=== PATIENT | male | born 2000 | race Caucasian/White ===

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

== ENCOUNTER 2023-11-27 13:52 | Day surgery (SDC) | payer OTHER ==
[~2023-11-27] VITALS: Ht 180.3 cm; Wt 80.7 kg
[~2023-11-27 13:52] MED LIST changes: -CONRAY-43 43% 50ML VIAL (Q9960) As Ordered ONE; +IBUP-1022 PO; +MAGN400C PO; +MULTTAB61 PO; +OMEG10002 PO; -PROHANCE 279.3MG/ML 5ML VIAL (A9576) As Ordered ONE
[2023-11-27] MEDS ORDERED: LR 1,000 ML IV SCH ×2 (14:00→18:45)
[2023-11-27] MEDS ORDERED: LIDOCAINE 2% 100MG/5ML SDV (FOR ANES.) As Ordered ONE (16:27)
[2023-11-27] MEDS ORDERED: ROCURONIUM BROMIDE 50MG/5ML VIAL As Ordered ONE (16:27)
[2023-11-27] MEDS ORDERED: ONDANSETRON 4MG 2ML VIAL As Ordered ONE (16:27)
[2023-11-27] MEDS ORDERED: propofoL 200 MG/20 ML VIAL As Ordered ONE (16:27)
[2023-11-27] MEDS ORDERED: MIDAZOLAM INJ 2MG/2ML VIAL As Ordered ONE (16:28)
[2023-11-27] MEDS ORDERED: fentaNYL 100 MCG/2 ML INJECTION As Ordered ONE (16:28)
[2023-11-27] MEDS ORDERED: dexmedeTOMIDine (4MCG/ML)200MCG/50ML BTL (PRECEDEX) As Ordered ONE (17:00)
[2023-11-27] MEDS: ceFAZolin SOD 2 GM in IV 1 EA IV ONE (17:18)
[2023-11-27] MEDS ORDERED: ACETAMINOPHEN 1000MG 100ML IV BAG As Ordered ONE (17:36)
[2023-11-27] MEDS: HEPARIN SOD (PORCINE) 5000UNITS/ML 1ML VIAL/SYRINGE SQ ONE (17:40)
[2023-11-27] MEDS ORDERED: ONDANSETRON 4MG 2ML VIAL IV PRN (18:45)
[2023-11-27] MEDS ORDERED: fentaNYL 100 MCG/2 ML INJECTION IV PRN (18:45)
[2023-11-27] MEDS: HYDROMORPHONE HCL 0.5 MG/ 0.5 ML SYRINGE IV PRN (19:11)
[2023-11-27] MEDS: oxyCODONE 5MG TAB PO PRN (19:29)
[2023-11-27 20:40] VITALS: BP 129/60; TEMP 96.8; O2SAT 99
== END 2023-11-27 20:44 | disposition home or self-care (01) ==
LOC: M SDC 13:52
PROVIDERS: ATTEND Surgery
DX: K40.90 Unilateral inguinal hernia, without obstruction or gangrene, not specified as recurrent (principal); Z90.49 Acquired absence of other specified parts of digestive tract